=== PATIENT | male | born 1950 | race Caucasian/White ===

== ENCOUNTER → 2022-04-30 | Outpatient (CLI) | payer OTHER, SELFPAY ==
--- NOTE | 2022-04-30 08:02 | PCM.PR.HP ---
History of Present Illness Arrival date:: 04/30/22 Arrival time:: 08:08 Date of Referral:: 04/24/22 Date of Evaluation: 04/30/22 Referring Physician: [facility] Primary Diagnosis: COPD History of Present Illness: 71 yr male patient of the [facility] who was referred to [facility] pulmonary rehab for his COPD. The patient is currently on home oxygen at 4 liters, has acute exertional dyspnea and increased fatigue. mMRC Breathless Scale: When is the patient short of breath? Y/N Grade: Description of Breathlessness: 0 I only get breathless with strenuous exercise. 1 I get short of breath when hurrying on level ground or walking up a slight hill. 2 On level ground, I walk slower than people of the same age because of breathless, or have to stop for breath when walking at my own pace. 3 I stop for breath after walking 100 yards or after a few minutes on level ground. 4 I am too breathless to leave the house or I am breathless when dressing. Respiratory Problems: Yes: Retain Secretions, Fatigue, Wheezing, Able to Speak in Full Sentences, Dyspnea with Activity No: Ankle Swelling - Secretions Normal Color:: yellow Thin:: Yes Amount/Day:: 1 TSP AM: Yes Hx of Sleep Apnea: No Do you snore loudly (louder than talking or can be heard through closed doors)?: Yes - has a lot of allergies, chronic rhinitis Do you often feel tired/ fatigued/ sleepy during daytime?: Yes Has anyone observed you stop breathing during sleep?: Yes - wakes up gasping but will go back to sleep History of Hypertension (for STOP score): Yes STOP Results: Positive Home Medications: Home Medications albuterol 90 mcg/actuation aerosol inhaler mcg inhalation 04/30/22 albuterol sulfate 0.63 mg/3 mL solution for nebulization 0.63 mg inhalation Q4H PRN Dyspnea 04/30/22 aspirin 81 mg tablet 81 mg PO DAILY 04/30/22 atorvastatin 40 mg tablet 40 mg PO QHS 04/30/22 budesonide-formoterol HFA 160 mcg-4.5 mcg/actuation aerosol inhaler (Symbicort) 2 puff inhalation BID 04/30/22 cetirizine 5 mg tablet 5 mg PO DAILY 04/30/22 diltiazem HCl 120 mg tablet 120 mg PO Q8H 04/30/22 enalapril maleate 5 mg tablet 5 mg PO DAILY 04/30/22 meclizine 25 mg tablet (Dramamine (meclizine)) 25 mg PO BID PRN Vertigo 04/30/22 terazosin 2 mg capsule 2 mg PO DAILY 04/30/22 tiotropium bromide 2.5 mcg/actuation mist for inhalation (Spiriva Respimat) 2 puff inhalation DAILY 04/30/22 ubidecarenone-omega 3-vit E 25 mg-150 (90-60) mg-200 unit capsule (Co [id number] E-Fish Oil) 2 cap PO BID 04/30/22 Allergies/Adverse Reactions: Allergies sulfamethoxazole [From Bactrim] Adverse Reaction (Verified 04/30/22 08:37) Anaphylaxis trimethoprim [From Bactrim] Adverse Reaction (Verified 04/30/22 08:37) Anaphylaxis Medical Utilization Do you use a peak flow meter at home?: No Do you use a spacer device with your inhalers?: Yes Number of hospital visits in the last year?: 1 - pneumonia Number of emergency room visits in the last year?: 1 - short of breath found out it was pneumonia Do you see your physician on a regular schedule?: Yes How often?: 3-6 months Advanced Directives - Advanced Directives Power of Vertical Punch Operator: No Living Will: Yes Advance Directives Information Provided: No Advance Directives on File: No DNR Order?:: No - MOLST See MOLST form: No Past Medical History - Covid-19 Screening Fever: No Unexplained muscle aches: No Current respiratory symptoms: Yes - COPD, Chronic Rhinitis Upper respiratory infections symptoms: Yes - Seasonal Allergies, Chronic Rhinitis Gastro-intestinal symptoms: No Xhb-Keti-Pcrodt symptoms: Yes - Loss of hearing Has tested positive for COVID-19 in last 30 days: No Date of testin04/30/22 - 2-vaccines and one booster Had contact w/person w/symptoms or Covid-19 (+) last 14 days: No Has High Risk Exposures ID'd by Health dept/Inf Control team: No 65 years or older:: Yes Lives in Assisted Living facility:: No Has a chronic lung disease or moderate to severe asthma:: Yes Has a serious heart condition:: No Immunocompromised:: No Severely obese (Body Mass Index of 40 or higher):: No Diabetic:: No Has chronic kidney disease undergoing dialysis:: No Has liver disease:: No Medical History: Past Medical History (Last Updated 04/30/22 @ 08:44 by Juan C Durand CRT, [employer] SUPERVISOR, BS) Allergic rhinitis J30.9 Chronic obstructive pulmonary disease (COPD) J44.9 Former smoker Z87.891 History of pneumonia Z87.01 Hyperlipidemia E78.5 Hypertension I10 Myocardial infarction I21.9 About 20 years ago Obesity (BMI 30-39.9) E66.9 Surgical History: Past Surgical History (Last Updated 04/30/22 @ 08:44 by Juan C Durand CRT, [employer] SUPERVISOR, BS) H/O angioplasty Z98.62 About 20 years ago Social History - Smoking History Smoking Status: Former smoker Years Smokin Packs Smoked per Day: 4 Hx Smoking Cessation Date: 08/20/21 Hx Tobacco Use: Yes Hx Smoking Exposure: No - Alcohol Use Alcohol Usage: Yes - beer once in a while - Substance Abuse Hx Substance Use: No - Occupation Occupation (List type of work in comments):: Retired - disabled [employer] - Hobbies, Recreation, Social Activities Hobbies: Sports - hunting, Other - work on 4 wheelers Recreational Activities: I am able to engage in most, but not all activities Functioning ADL/IADL - Current Ability Current Ability: Independent Self-Care (e.g.,grooming, dressing, & bathing), Independent Ambulation, Independent Transfer, Independent Household tasks (e.g., light meal prep, laundry, shopping) - Pt Functioning Prior to Problem Prior Functioning: Self-Care (e.g.,grooming, dressing, & bathing): Independent, Ambulation: Independent, Transfer: Independent, Household tasks (e.g., light meal prep, laundry, shopping): Independent Social Environment - Status Marital Status: - Current Living Arrangements Living Environment:: Alone - Children How many children do you have?: 4 Do any of your children live nearby?: Yes - Safety Do you feel safe in your surroundings?: Yes - Assistance Do you need any assistance at home?: no Review of Systems Review of Systems: Right click = Denies (Slash). Left click = Reports ([place]) Respiratory: Reports: Cough, SOB at Rest - sometimes, not all the time, SOB upon Exertion, Sputum production - AM usually a pale yellow, Wheezing, Appetite, Normal, Dizziness/Lightheadedness - sometimes if run really short of breath will get a little lightheaded., Fatigue, Sleep, Normal Is Patient Pain Free?: Yes Pain Location: back Pain Level: 0/10 - history of back surgery, usually dull ache Risk Factor Assessment - Chief Complaint Chief Complaint: Pleasant 71 male who is referred to [facility] pulmonary rehab from the [facility] due to his COPD. The patient has exertional dyspnea and fatigue associated with his COPD and is currently on home oxygen at 4 liters. - Vital Signs Temperature: 97.6 F Pulse Rate: 98 Pulse Rhythm: Regular Respiratory Rate: 20 Pulse Ox: 95 - on 4 liters Blood Pressure: 135/75 - Obesity Height: 5 ft 6 in Weight:: 234 lb Weight in Pounds: 234.0 lbs Weight Source: Estimated by Patient Body Mass Index (BMI): 37.8 Nutritional Referral for Obesity: Yes - Physical Activity Physical Inactivity: None - Risk Stratification Risk Guidelines: Lowest Risk: Risk Factor for Smoking, Risk Factor for Dyslipidemia, Risk Factor for Diabetes, Moderate Risk: Risk Factor for Hypertension - 135/75 at rest, Risk Factor for Sedentary Lifestyle, Highest Risk: Risk Factor for Obesity Motivation - Motivation to Participate On a scale of 1 to 10, how prepared are you to commit to attending program?: 9 What do you see as barriers to successfully being able to complete the program?: travel/gas cost What do you see as the benefits of succesfully completing the program? In other words, what do you hope to get out of participating in the program?: getting healthier, breath better maybe reduce use of oxygen Are there issues you are dealing with that will interfere with completing the program?: no Do you have a spouse or signficant other, family or friends who will help support you to complete the program?: yes Diagnostic Data Review - Pulmonary Function Test FEV1:: 2.57 FVC:: 2.60 FEV1/FVC%:: 57 Gold Classification: GOLD class III(severe COPD)with FEV1/FVC<70, 30%</=FEV1< 50% predicted
--- NOTE | 2022-04-30 08:03 | PR.ITP_ITS ---
General Information2 - General Information Admitting Diagnosis: Chronic Obstructive Pulmonary Disease (COPD) Secondary Diagnosis: HTN, HLD Gold Classification:: GOLD 3: Severe Oxygen: 4 liters with exertion - PFT FEV1:: 2.57 - 45% PREDICTED FVC:: 2.60 - 77% PREDICTED FEV1/FVC%:: 57 - Personal Learning Style/Barriers Personal Learning Style:: Audio/Visual, Written Barriers to Learning: Vision impaired - corrective lenses, Hearing impaired - HEARING AIDS for hearing loss Stage of change r/t lifestyle modifications: Prepared Educational Classes VT: Living with Chronic Lung Disease: Initial Assessment, Breathing Retraining: Initial Assessment - SMI, PFlex, Exercise: Initial Assessment, Energy Conservation: Initial Assessment, Nutrition: Initial Assessment - Why Weight Program, Airway clearance: Initial Assessment - Acapella Device - Education/Goals Individual Counseling: Initial Assessment: High Blood Pressure, Overweight/Obesity, Sedentary Lifestyle VT Patient Goals: Increase muscle strength: Initial Assessment, Experience less dyspnea: Initial Assessment, Improve energy level: Initial Assessment, Improve the ability to cope with ADLs: Initial Assessment, Improve my quality of life: Initial Assessment Exercise - Initial Assessment - Visit Date of Eval: 04/30/22 Session Number:: 0 - Pre-Cardiac Rehab Evaluation - Problem/Goals Problems: Deconditioning, No regular exercise, Knowledge deficit exercise guidelines, Knowledge deficit exercise safety Goals:: VT: 2-3/wk for 18 weeks [36 sessions] - Physician Prescribed Exercise Modalities: Treadmill, Airdyne, NuStep Frequency (days/week): 3 - Patient lives in [place] and may drop to 2 days per week depending on gas prices cost to travel. I did recommend speaking ot the [place] about travel expense reimbursement. Duration (Minutes):: 30-45 Intensity: 60-80% of age predicted maximum heart rate reserve Current METSs:: 2.0 Target HR:: 122 - THRR 96-122 Resting Blood Pressure: 135/75 - mechanical EKG Type: Sinus rhythm Current Minutes of Exercise: 0 - Plan Plan and Plan to Review:: Benefits of exercise, Core components of exercise, How to measure dyspnea level, How to monitor dyspnea level, Exercise intensity, Exercise safety guideline, Home exercise guidelines, Tomás: 3-4/-13 Nutrition/Wt Mgmt - Initial - Visit Date of Eval: 04/30/22 Session Number:: 0 - Pre-Cardiac Rehab Evaluation - Problems/Goals Problems: Overweight Goals: BMI 21-25, Wt Loss 1-2 lbs per week - Weight Management Knowledge Deficit Management of:: Overweight - BMI 37 Admit Height:: 5 ft 6 in Admit Weight:: 234 lb Admit BMI:: 37.8 - Intervention Referral to dietitian:: Yes - Medical Nutrition Therapy (HTN & HLD) Will attend diet classes:: Yes Intervention/Plan: Instruct on ideal BMI & set weight loss goal w/patient, Assist pt to ID & incorporate diet changes for weight loss by S9, Refer to Structured Weight Loss program as appropriate, Encourage goal of using 250- 300dcal per session for weight loss - Plan Nutrition Plan: Yes Review BMI or WC & identify target wt & strategies for wt control, Yes Nutrition education class:, Yes Weight control education class: Psychosocial - Initial Assess - Visit Date of Eval: 04/30/22 Session Number:: 0 - Pre-Cardiac Rehab Evaluation - Psychosocial Test Tool Used:: Pulmonary QOL, PHQ-9 Questionnaire - Referral to Behavioral Health PS - Interventions: Yes Attend Stress Management Classes, No Referral to Behavioral Health if PHQ-9 score >9:, No Referral to [facility], No Referral to Physician if PHQ-9 if score is 5-9: - Intervention/Plan: See List Interventions/Plan:: Assess stressors,coping strategies & signs of derpression on admission, Instruct/assist pt to develop coping & personal stress Mgt strategies, Instruct patient to recognize signs & symptoms of depression, Instruct patient to recog Oxygen & Oxygen Titration Init - Visit Date of Eval: 04/30/22 Session Number:: 0 - Pre VT Evaluation - Initial Assessment Oxygen on Admission: Continuous home use - 4 Liters with exertional activity; 2 liters at night during sleep. Patient Reports:: Prod cough daily <1 Tbsp - has an Acapella Device for mucus clearance - Goal Oxygen & Oxygen Tritration Goals: Effective hypoxemia control, Uses O2 as Rx'd/safely - Plans Plan: Monitor SpO2 rest & with exercise, Train appropriate O2 use at rest, Train appropriate O2 use with exercise, Train O2 safety & systems Reviewed prescribed medications:: Purpose, Schedule, Side effects, Importance of compliance Instruct correct technique/timing & care:: MDI, DPI, Nebulizer, Return demo use of inhaler Bronchial Hygiene Plan: Controlled cough, Vibratory PEP device, NS Nasal spray, Hydration, Hand hygiene, Signs/symptoms to report: Core Components - Initial - Visit Date of Eval: 04/30/22 Session Number:: 0 - Pre-VT evaluation - Hypertension Hypertension Diagnosis:: Hypertension ICD-10 I10 BP: 135/75 - mechanical [place] [employer] Hypertension Guidelines: [place] [employer] Hypertension Guidelines. Normal BP Less than 120/80. Elevated BP 120/80. Hypertension Stage 1: BP 130-139/80-89. Hypertesnion Stage 2: BP 140 or higher/90 or higher. Hypertension Crisis: BP higher than 180/120 Blood Pressure: 135/75 Low Sodium diet: Yes Outcomes/Goals: Able to verbalize/achieve optimal blood pressure <130/80, Incorporates diet changes & exercise for blood pressure control by DC - Tobacco - Initial Assessment Tobacco Program Goals: Complete smoking cessation. Attend education classes. Improve Knowledge Test score How long ago did you quit using tobacco products?: Greater than or equal to 6 months ago - Quit 08/20/2021 Do you use smokeless tobacco?: No Smoking Cessation Referral:: No Individual Education/Counseling:: No Education Schedule Given:: Yes Gave Education Materials For:: Pulmonary Disease, Risk Factors, Breathing Techniques, Medical Compliance, Pulmonary A&P, Exacerbation Signs & Symptoms, Stress & Relaxation - Exacerbation Mgmt & Airway Clearance Hypoxemia Goals:: Hypoxemia managed Bronchial Hygiene Problems:: Ineffective secretion clearance, Respiratory infection Prevention/Management Goals: Pt demonstrates effective cough, effective secretion clearance., Pt describes signs and symptoms of infection. Patient Reports:: Prod cough daily <1 Tbsp Instruct correct technique/timing & care:: MDI, DPI, Nebulizer Bronchial Hygiene Plan: Controlled cough, Vibratory PEP device, Hydration, Hand hygiene, Signs/symptoms to report: - Medication Interventions/plans: Instruct on medication effects & side effects, Review medication list w/patient every two weeks, Instruct importance of taking meds as ordered & assist problem solving Medication Goals: Adherence to prescribed medications, Correct technique/timing & care of MDI, DPI, nebulizer, and spacer. Does pt report taking home meds as prescribed?: Yes Medications: Yes MDI, Yes DPI, Yes NEB, Yes Spacer Reviewed prescribed medications:: Purpose, Schedule, Side effects, Importance of compliance - Diabetes Diabetes:: No Core Components - 30 DAYS Core Components - 60 DAYS Core Components - 90 DAYS Core Components - Final Patient Health Questionnaire Initial Assessment 1. Little interest or pleasure in doing things: Not at all 2. Feeling down, depressed, or hopeless: Not at all 3. Trouble falling or staying asleep, or sleeping too much: Several days 4. Feeling tired or having little energy: Several days 5. Poor appetite or overeating: Several days 6. Feeling bad about yourself -- or that you are a failure or have let yourself or your family down: Not at all 7. Trouble concentrating on things, such as reading the newspaper or watching television: Not at all 8. Moving or speaking so slowly that other people could have noticed. Or the opposite - being so fidgety or restless that you have been moving around a lot more than usual: Not at all 9. Thoughts that you would be better off , or of hurting yourself in some way: Not at all How difficult have these problems made it for you to do your work, take care of things at home, or get along with other people?: Not difficult at all Total Score: 3 Knowledge Questionaire (BCKQ) - Information Information: [place] COPD Knowledge Questionnaire (BCKQ) This questionnaire is designed to find out what you know about your lung problem. It should be completed without help form anyone else. This usually takes between 10 and 20 minutes. Your answers will help us to find out what information you need to help you to understand and manage your lung condition. [place] which you think is the correct answer. - Questions b. COPD can only be confirmed by breathing tests: True c. In COPD ther is usually gradual worsening over time: Don't know d. In COPD oxygen levels in the blood are always low: Don't know e. COPD is usually in people less than 40 years old: False Beni than 80% of COPD cases are caused by cigarette smoking: True b. COPD can be caused by occupational dust exposure: True c. Longstanding asthma can develop into COPD: Don't know d. COPD is commonly an inherited disease: False e. Women are less vunerable to the effects of cigarette than men: False a. Swelling of the ankles is common in COPD:: Don't know b. Fatigue [tiredness] is common in COPD: True c. Wheezing is common in COPD: True d. Crushing chest pain is common in COPD: False e. Rapid weight loss is common in COPD: False a. Severe breathlessness prevents travel by air: False b. Breathlessness can be worsened by eating large meals: True c. Breathlessness means that your oxygen levels are low: True d. Breathlessness is a normal response to exercise: False e. Breathlessness is primarily caused by a narrowing of the bronchial tubes: Do n't know a. Coughing phlegm is a common symptom in COPD: True b. Clearing phlegm is more difficult if you get dehydrated: Don't know c. Bronchodilator inhalers can help clear phlegm: Don't know d. Phlegm causes harm if swallowed: False e. Clearing phlegm can be assisted by breathing exercises: True a. Chest infections often cause coughing of blood: False b. Chest infection phlegm usually becomes coloured (ylw/grn): True cExerbations (episodes of worsening) can occur in the absence of chest infection: Don't know d. Chest infections are always accompanied by a high temperature: False e. Steroid tablets should be taken whenever there is an exacerbation: Don't know aWalking excercises better than breathing to improve fitness: Don't know b. Exercise should be avoided as it strains the lungs: False c. Exercise can help maintain your bone density: Don't know d. Exercise helps relieve depression: True e. Exercise should be stopped if it makes you breathless: Don't know a. Stopping smoking will reduce the risk of heart disease: True b. Stopping smoking will slow down further lung damage: True c. Stopping smoking is pointless as the damage is done: False d.Stopping smoking usually results in improved lung function: True eNicotine replacement therapy only available on prescription: False a. A flu jab is recommended every year: True b. You can get flu from having a flu jab: False c. You can only have a flu jab if you are 65 or over: False d. A pneumonia jab protects against all forms of pneumonia: Don't know e.You can have a pneumonia jab and a flu job on the same day: Don't know a. Bronchodilators act quickly (within 10 minutes): False b. Both short & long acting bronchodilators can be taken on the same day: True c. Spacers (volumatic,nebuhaler,serochamber)should be dried w/atowel after washing: False d. A spacer device increases the medication to the lungs: Don't know e. Tremor may be a side effect of bronchodilators: Don't know a. To be effective, the course should last at least 10 days: Don't know b. Excessive use of antibiotics can cause resistant bacteria (germs): Don't know c. Antibiotics will clear all chest infections: Don't know d. Antibiotic treatment is necessary for an exacerbation (worsening) however mild: Don't know e. Seek advice if antibiotics cause severe diarrhoea: True dIndigestion is common side effect from using steroid tablet: True e. Steroid tablets can increase your appetite: False a. Inhaled steroids should be stopped if you are given steroid tablets: Don't know bSteroid inhalers can be used for rapid relief breathlessnes: Don't know c. Spacer devices reduce the risk of getting thrush in the mouth: Don't know d.Steroid inhaler should be taken before your bronchodilator: Don't know e. Inhaled steroids improve lung function in COPD: Don't know COPD Assessment Test [CAT] - Questions Never cough = 0, Cough all the time = 5: 2 No phlegm = 0, Chest full of phlegm = 5: 2 No chest tightness = 0, Chest very tight = 5: 0 No breathless w/exertion = 0, Very breathless w/exertion = 5: 5 No limitations w/activity = 0, Very limited w/activity = 5: 4 Confident leaving home = 0, Not at all confident = 5: 1 Sleep soundly = 0, Don't sleep soundly = 5: 2 Lots of energy = 0, No energy at all = 5: 4 Total CAT score:: 20 Self-Efficacy Initial Assessment We would like to know how confident you are in doing certain activities. Please select your confidence level for:: Select your confidence level for the following using the scale 1-10 where 1 is not at all confident and 10 is totally confident. Your score is the average of all 6 responses. Fatigue: How confident are you that you can keep the fatigue caused by your disease from interfering with the things you want to do? Select Number: 5 Physical Discomfort or Pain: How confident are you that you can keep the physical discomfort or pain of your disease from interfering with the things you want to do? Select Number: 5 Emotional Distress: How confident are you that you can keep the emotional distress caused by your disease from interfering with the things you want to do? Select Number: 10 Other Symptoms or Health Problems: How confident are you that you can keep other symptoms or health problems from interfering with the things you want to do? Select Number: 9 Different Tasks and Activities: How confident are you that you can do the different tasks and activities needed to manage your health condition so as to reduce your need to see a doctor? Select Number: 8 Medication: How confident are you that you can do things other than just taking medication to reduce how much your illness affects your everyday life? Select Number: 8 Total Score:: 7 Nutrition Survey - Nutrition Survey Initial Have you lost >10 lbs over the past 2 months without trying?: No Are you following a special diet at home for diabetes, low fat, or low salt?: No Are you interested in meeting with a dietitian for help understanding your diet?: No Do you eat less than 3 meals a day?: No Do you eat fatty meats (pelayo, sausage, ribs, etc), fried foods, desserts, large amounts of salad dressings, margarine, butter, or cheese most days?: Yes Do you have food allergies? [Enter types in comment field]: No Do you eat in restaurants more than 3 times a week?: No Do you season food with salt, seasoning salt, or garlic salt?: Yes Do you used canned, boxed, frozen meals, or soups, seasoning packets?: Yes Total Score:: 3
[2022-04-30 08:55] VITALS: BP 135/75; PULSE 98; RESP 20; TEMP 36.4; O2SAT 95; BMI 37.8
[2022-04-30 09:32] VITALS: BP 135/75; BMI 37.8
== END | disposition home or self-care (01) ==
DX: J44.9 Chronic obstructive pulmonary disease, unspecified (principal); I10 Essential (primary) hypertension; E66.9 Obesity, unspecified; E78.5 Hyperlipidemia, unspecified; Z99.81 Dependence on supplemental oxygen

== ENCOUNTER 2022-05-20 08:00 | Outpatient (RCR) | payer OTHER, SELFPAY | END 2022-05-20 23:59 | LOC: PR 08:00 | DX: J44.9 Chronic obstructive pulmonary disease, unspecified (principal) | CPT/HCPCS: 97150; 94626 ==

== ENCOUNTER 2022-06-19 08:00 | Outpatient (RCR) | payer OTHER, SELFPAY ==
--- NOTE | 2022-06-01 11:25 | PR.ITP_ITS ---
Exercise - 30-Day Assessment - Visit Date of Eval: 06/01/22 Session Number:: 12 - Physician Prescribed Exercise Modalities: Treadmill, NuStep, SciFit Frequency (days/week): 3 Duration (Minutes):: 30-45 Intensity: 60-80% of age predicted maximum heart rate reserve Aerobic Exercise [30-60 min 3-7x/week]:: Progressing Tomás-14 Current METSs:: 3.0 Target HR:: 122 - THRR 96-122 Current RPD:: 3-4 Maximum Exercise HR:: 115 Resting Blood Pressure: 128/64 Maximum Exercise Blood Pressure: 148/62 Minimum SpO2 with exercise: 89 - 4 liters oxygen EKG Type: Sinus rhythm to sinus tach PVCs rare couplets Current Minutes of Exercise: 35:36 Nutrition/Wt Mgmt - 30-Day - Visit Date of Eval: 06/01/22 Session Number:: 12 - Weight Management Weight:: 235 lb Waist Circumference:: 0 Psychosocial - 30-Day - Visit Date of Eval: 06/01/22 Session Number:: 12 - Problems/Goals Psychosocial Goals: 7. Improved Q.O.L. - Psychosocial Test Tool Used:: PHQ-9 Questionnaire Referred to MD for counseling:: No - Referral to Behavioral Health PS - Interventions: Yes Attend Stress Management Classes, No Referral to Behavioral Health if PHQ-9 score >9:, No Referral to [facility], No Referral to Physician if PHQ-9 if score is 5-9: - Plan Interventions/Plan:: Assess stressors,coping strategies & signs of derpression on admission, Instruct/assist pt to develop coping & personal stress Mgt strategies, Instruct patient to recognize signs & symptoms of depression, Instruct patient to recog Oxygen & Oxygen Titration 30D - Visit Date of Eval: 06/01/22 Session Number:: 12 - Reassessment Reassessment- 30 Days: Demonstrate knowledge of O2 Rx at rest & w/exercise, Using O2 as Rx'd, Has home O2 as Rx'd, Uses port O2 as Rx'd Breath Sounds:: Diminished, Insp. & Exp. Wheezing SpO2:: 92 - on his 3 liters Core Components - Initial Core Components - 30 DAYS - Visit Date of Eval: 06/01/22 Session Number:: 12 - Hypertension Resting Blood Pressure:: 128/64 [place] [employer] Hypertension Guidelines: [place] [employer] Hypertension Guidelines. Normal BP Less than 120/80. Elevated BP 120/80. Hypertension Stage 1: BP 130-139/80-89. Hypertesnion Stage 2: BP 140 or higher/90 or higher. Hypertension Crisis: BP higher than 180/120 Peak Exercise Blood Pressure:: 148/62 Change in medication: No Outcomes/Goals: Able to verbalize/achieve optimal blood pressure <130/80, Incorporates diet changes & exercise for blood pressure control by DC Interventions/plan: Instruct on optimal blood pressure, hypertension & medications, Instruct on effects of sodium, alcohol, stress, exercise &hypertension 30 day Reassessments:: Progressing - Tobacco - 30-Day Tobacco Program Goals: Complete smoking cessation. Attend education classes. Improve Knowledge Test score Tobacco Use: Non-smoker - Exacerbation Mgmt & Airway Clearance Reassessment: Demonstrates knowledge of O2 Rx at rest, Demonstrates knowledge of O2 Rx with exercise, Using O2 as prescribed, Has home O2 as prescribed, Uses port O2 as prescribed Bronchial Hygiene Plan: Yes Pt demonstrates correctly for effective cough, Yes Pt demo correct for sputum management, Yes Pt demo correct for improved hydration, Yes Pt demo correct for hand hygiene, Yes Pt demo correct for verbalize when to call MD - Medication Medication list reviewed:: Yes Taking medications 100% of the time:: Met Medication reassessment: Yes Pt demonstrates correct technique timing for MDI, Yes Pt demonstrates correct technique timing for DPI, Yes Pt demonstrates correct technique timing for NEB, Yes Pt demonstrates correct technique timing for spacer - Diabetes Diabetes:: No Core Components - 60 DAYS Core Components - 90 DAYS Core Components - Final Patient Health Questionnaire 30-Day Re-eval Assessment 1. Little interest or pleasure in doing things: Not at all 2. Feeling down, depressed, or hopeless: Not at all 3. Trouble falling or staying asleep, or sleeping too much: Not at all 4. Feeling tired or having little energy: Several days 5. Poor appetite or overeating: Several days 6. Feeling bad about yourself -- or that you are a failure or have let yourself or your family down: Not at all 7. Trouble concentrating on things, such as reading the newspaper or watching television: Not at all 8. Moving or speaking so slowly that other people could have noticed. Or the opposite - being so fidgety or restless that you have been moving around a lot more than usual: Not at all 9. Thoughts that you would be better off , or of hurting yourself in some way: Not at all How difficult have these problems made it for you to do your work, take care of things at home, or get along with other people?: Not difficult at all Total Score: 2 Knowledge Questionaire (BCKQ) - Information Information: [place] COPD Knowledge Questionnaire (BCKQ) This questionnaire is designed to find out what you know about your lung problem. It should be completed without help form anyone else. This usually takes between 10 and 20 minutes. Your answers will help us to find out what information you need to help you to understand and manage your lung condition. [place] which you think is the correct answer. Self-Efficacy 30-Day Re-eval Assessment We would like to know how confident you are in doing certain activities. Please select your confidence level for:: Select your confidence level for the following using the scale 1-10 where 1 is not at all confident and 10 is totally confident. Your score is the average of all 6 responses. Fatigue: How confident are you that you can keep the fatigue caused by your disease from interfering with the things you want to do? Select Number: 7 Physical Discomfort or Pain: How confident are you that you can keep the physical discomfort or pain of your disease from interfering with the things you want to do? Select Number: 7 Emotional Distress: How confident are you that you can keep the emotional distress caused by your disease from interfering with the things you want to do? Select Number: 10 Other Symptoms or Health Problems: How confident are you that you can keep other symptoms or health problems from interfering with the things you want to do? Select Number: 10 Different Tasks and Activities: How confident are you that you can do the different tasks and activities needed to manage your health condition so as to reduce your need to see a doctor? Select Number: 9 Medication: How confident are you that you can do things other than just taking medication to reduce how much your illness affects your everyday life? Select Number: 9 Total Score:: 8 Nutrition Survey
[2022-06-01 11:36] VITALS: BP 128/64; BP 148/62; O2SAT 92
== END 2022-06-19 23:59 ==
LOC: PR 08:00
DX: J44.9 Chronic obstructive pulmonary disease, unspecified (principal)
CPT/HCPCS: 97150; 94626

== ENCOUNTER 2022-07-20 08:00 | Outpatient (RCR) | payer OTHER, SELFPAY ==
[2022-06-20 01:37] VITALS: BP 128/64; BP 148/62
--- NOTE | 2022-06-29 09:36 | PR.ITP_ITS ---
Exercise - 60-Day Assessment - Visit Date of Eval: 06/29/22 Session Number:: 24 - Physician Prescribed Exercise Modalities: Treadmill, NuStep, SciFit Intensity: 60-80% of age predicted maximum heart rate reserve Current METSs: 3.5 Target HR:: 122 - THRR 96-122 Current RPD:: 13-14 Resting Blood Pressure: 132/66 Maximum Exercise Blood Pressure: 164/76 EKG Type: Sinus Rhythm to sinus tach with rare PAC & PVC. - Home Exercise Home Exercise:: Yes Mode: Walking Frequency:: sits <3 hours Nutrition/Wt Mgmt - 60-Day - Visit Date of Eval: 06/29/22 Session Number:: 24 - Weight Management Height: 5 ft 6 in Weight:: 233 lb BMI: 37.5 Weight Goals Progress:: Referral to structured weight management program Psychosocial - 60-Day - Visit Date of Eval: 06/29/22 Session Number:: 24 - Problems/Goals History of Emotional Disorders: None - Psychosocial Test Tool Used:: PHQ-9 Questionnaire Referred to MD for counseling:: No - Referral to Behavioral Health PS - Interventions: Yes Attend Stress Management Classes, No Referral to Behavioral Health if PHQ-9 score >9:, No Referral to [facility], No Referral to Physician if PHQ-9 if score is 5-9: - Plan Interventions/Plan:: Assess stressors,coping strategies & signs of derpression on admission, Instruct/assist pt to develop coping & personal stress Mgt stra tegies, Instruct patient to recognize signs & symptoms of depression, Instruct patient to recog - Patient participates in stress and relaxation techniques Oxygen & Oxygen Titration 60D - Visit Date of Eval: 06/29/22 Session Number:: 24 - Reassessment Reassessment- 60 Days: Demonstrate knowledge of O2 Rx at rest & w/exercise, Using O2 as Rx'd, Has home O2 as Rx'd, Uses port O2 as Rx'd Breath Sounds:: Diminished, Expiratory Wheezes Core Components - Initial Core Components - 30 DAYS Core Components - 60 DAYS - Visit Date of Eval: 06/29/22 Session Number:: 24 - Hypertension Hypertension Diagnosis:: Hypertension ICD-10 I10 Resting Blood Pressure:: 132/66 [employer] [employer] Hypertension Guidelines: [place] [employer] Hypertension Guidelines. Normal BP Less than 120/80. Elevated BP 120/80. Hypertension Stage 1: BP 130-139/80-89. Hypertesnion Stage 2: BP 140 or higher/90 or higher. Hypertension Crisis: BP higher than 180/120 Peak Exercise Blood Pressure:: 164/76 Change in medication: No Outcomes/Goals: Able to verbalize/achieve optimal blood pressure <130/80, Incorporates diet changes & exercise for blood pressure control by DC Interventions/plan: Instruct on optimal blood pressure, hypertension & medications, Instruct on effects of sodium, alcohol, stress, exercise &hypertens ion 60 day Reassessments:: Progressing - Tobacco - 60-Day Tobacco Program Goals: Complete smoking cessation. Attend education classes. Improve Knowledge Test score Tobacco Use: Non-smoker - Exacerbation Mgmt & Airway Clearance Reassessment: Demonstrates knowledge of O2 Rx at rest, Demonstrates knowledge of O2 Rx with exercise, Using O2 as prescribed, Has home O2 as prescribed, Uses port O2 as prescribed Bronchial Hygiene Plan: Yes Pt demonstrates correctly for effective cough, Yes Pt demo correct for improved hydration, Yes Pt demo correct for hand hygiene, Yes Pt demo correct for verbalize when to call MD - Medication Medication list reviewed:: Yes Taking medications 100% of the time:: Met Medication reassessment: Yes Pt demonstrates correct technique timing for MDI, Yes Pt demonstrates correct technique timing for DPI, Yes Pt demonstrates correct technique timing for NEB, Yes Pt demonstrates correct technique timing for spacer - Diabetes Diabetes:: No - Heart Failure Documenting weight noelle: No Core Components - 90 DAYS Core Components - Final Patient Health Questionnaire 60-Day Re-eval Assessment 1. Little interest or pleasure in doing things: Not at all 2. Feeling down, depressed, or hopeless: Not at all 3. Trouble falling or staying asleep, or sleeping too much: Several days 4. Feeling tired or having little energy: Several days 5. Poor appetite or overeating: Not at all 6. Feeling bad about yourself -- or that you are a failure or have let yourself or your family down: Not at all 7. Trouble concentrating on things, such as reading the newspaper or watching television: Not at all 8. Moving or speaking so slowly that other people could have noticed. Or the opposite - being so fidgety or restless that you have been moving around a lot more than usual: Not at all 9. Thoughts that you would be better off , or of hurting yourself in some way: Not at all How difficult have these problems made it for you to do your work, take care of things at home, or get along with other people?: Not difficult at all Total Score: 2 Knowledge Questionaire (BCKQ) - Information Information: [place] COPD Knowledge Questionnaire (BCKQ) This questionnaire is designed to find out what you know about your lung problem. It should be completed without help form anyone else. This usually takes between 10 and 20 minutes. Your answers will help us to find out what information you need to help you to understand and manage your lung condition. [place] which you think is the correct answer. Self-Efficacy 60-Day Re-eval Assessment We would like to know how confident you are in doing certain activities. Please select your confidence level for:: Select your confidence level for the following using the scale 1-10 where 1 is not at all confident and 10 is totally confident. Your score is the average of all 6 responses. Fatigue: How confident are you that you can keep the fatigue caused by your disease from interfering with the things you want to do? Select Number: 8 Physical Discomfort or Pain: How confident are you that you can keep the ph ysical discomfort or pain of your disease from interfering with the things you want to do? Select Number: 8 Emotional Distress: How confident are you that you can keep the emotional distress caused by your disease from interfering with the things you want to do? Select Number: 10 Other Symptoms or Health Problems: How confident are you that you can keep other symptoms or health problems from interfering with the things you want to do? Select Number: 10 Different Tasks and Activities: How confident are you that you can do the different tasks and activities needed to manage your health condition so as to reduce your need to see a doctor? Select Number: 9 Medication: How confident are you that you can do things other than just taking medication to reduce how much your illness affects your everyday life? Select Number: 9 Total Score:: 9 Nutrition Survey
[2022-06-29 09:48] VITALS: BP 132/66; BP 164/76; BMI 37.5
== END 2022-07-20 23:59 ==
LOC: PR 08:00
DX: J44.9 Chronic obstructive pulmonary disease, unspecified (principal)
CPT/HCPCS: 97150; 94626

== ENCOUNTER 2022-07-29 08:00 | Outpatient (RCR) | payer OTHER, SELFPAY ==
[2022-06-29 09:48] VITALS: BMI 37.5
[2022-07-21 00:33] VITALS: BP 132/66; BP 164/76
== END 2022-08-19 23:59 ==
LOC: PR 08:00
DX: J44.9 Chronic obstructive pulmonary disease, unspecified (principal)
CPT/HCPCS: 97150; 94626